=== PATIENT | female | born 2005 | race Caucasian/White ===

== ENCOUNTER 2024-04-13 08:24 | Day surgery (SDC) | payer MEDICAID ==
[2024-04-13] MEDS ORDERED: Ketorolac 30 MG/ML SDV ONE (08:43)
[2024-04-13] MEDS ORDERED: propofoL 50 ML ONE (08:43)
[2024-04-13] MEDS ORDERED: Lidocaine 1% 5 ML VIAL ONE (08:43)
[2024-04-13] MEDS ORDERED: Dexamethasone 4 MG/ML 5 ML MDV ONE (08:43)
[2024-04-13] MEDS ORDERED: Ondansetron 4 MG/2 ML SDV ONE ×2 (08:43→10:44)
[2024-04-13] MEDS ORDERED: fentaNYL 100 MCG/2 ML SDV ONE (08:44)
[2024-04-13] MEDS: Lactated Ringers 1,000 ML IV SCH (09:04)
[2024-04-13 09:10] LABS: HEMATOCRIT 41.5 % (37.0-47.0); HEMOGLOBIN 14.5 g/dL (12.0-16.0); MEAN CORPUSCULAR HEMOGLOBIN 31.1 pg (28.0-32.0); MEAN CORPUSCULAR HGB CONC 34.9 g/dL (32.0-36.0); MEAN CORPUSCULAR VOLUME 89.1 fL (83.0-99.0); MEAN PLATELET VOLUME 8.1 fL (9.4-12.3); PLATELET COUNT,PLT 301 K/uL (150-400); RED BLOOD CELL COUNT 4.66 M/uL (4.10-5.30); WHITE BLOOD CELL COUNT,WBC 12.36 K/uL (4.5-13.5)
[2024-04-13] MEDS: Scopalamine 1mg/3day Transdermal Patch TOP ONE (09:10)
[2024-04-13] MEDS ORDERED: Azithromycin 500 MG Vial ONE (10:45)
== END 2024-04-13 11:50 | disposition home or self-care (01) ==
LOC: MW.SDS 08:24
PROVIDERS: ATTEND Obstetrics & Gynecology
DX: O02.1 Missed abortion (principal)
CPT/HCPCS: 36415; 59820; 84703; 85027; 86850; 86900; 86901; A9270; J0131; J1100; J1885; J2405; J2704; J3010; J7120; C1729; J3490